=== PATIENT | male | born 1985 | race Caucasian/White ===

== ENCOUNTER → 2019-08-18 10:36 | Outpatient (BNVA) | payer BC, SELFPAY | PROVIDERS: Family Provider Family Medicine; Referring Provider Family Medicine; Visit Provider Family Medicine | DX: N39.0 Urinary tract infection, site not specified (principal); R31.0 Gross hematuria | CPT/HCPCS: 80053; 81000 ==

== ENCOUNTER → 2020-08-20 08:45 | Outpatient (BNVA) | payer BC, SELFPAY | PROVIDERS: Family Provider Family Medicine; Visit Provider Podiatrist Foot & Ankle Surgery | DX: B35.3 Tinea pedis (principal) | CPT/HCPCS: 87210 ==

== ENCOUNTER → 2021-05-22 14:38 | Outpatient (BNVA) | payer BC, SELFPAY | PROVIDERS: Family Provider Family Medicine; Visit Provider Nurse Practitioner | DX: R05.9 Cough, unspecified (principal) | CPT/HCPCS: 87880 ==

== ENCOUNTER 2021-06-06 08:34 | Outpatient (CLI) | payer BC, SELFPAY ==
[2021-06-06 08:32] VITALS: BP 133/82; PULSE 90; RESP 16; TEMP 36.6; O2SAT 97; BMI 37.2
[2021-06-06 09:17] VITALS: BP 124/82; PULSE 100; RESP 16; TEMP 36.9; O2SAT 94
[2021-06-06 10:02] VITALS: BP 123/75; PULSE 87; RESP 16; TEMP 36.8; O2SAT 93
== END 2021-06-06 08:35 | disposition home or self-care (01) ==
LOC: OPS 08:36
PROVIDERS: Family Provider Family Medicine; Visit Provider Nurse Practitioner
DX: U07.1 COVID-19 (principal)
CPT/HCPCS: 96365

== ENCOUNTER → 2022-05-22 08:35 | Outpatient (BNVA) | payer BC, SELFPAY | PROVIDERS: Family Provider Family Medicine; PCP Family Medicine; Visit Provider Family Medicine | DX: R03.0 Elevated blood-pressure reading, without diagnosis of hypertension (principal); Z68.39 Body mass index [BMI] 39.0-39.9, adult | CPT/HCPCS: 80053; 80061; 85025 ==

== ENCOUNTER 2025-05-03 16:52 | Emergency (ER) | payer OTHER, SELFPAY ==
[2025-05-03 17:09] VITALS: BP 160/108; PULSE 69; RESP 16; TEMP 36.7; O2SAT 99; BMI 41.7
[2025-05-03 17:58] VITALS: BP 171/114; O2SAT 95
--- NOTE | 2025-05-03 18:05 | ED_ITS ---
HPI - General Adult General: Chief complaint: Headache Stated complaint: headache (7days) Time Seen by Provider: 05/03/25 17:17 History of Present Illness: Patient is a 39-year-old male presenting with a chief complaint of 1 week of headache in his left muslim, sharp, throbbing, currently 8 out of 10. Headache developed gradually, no inciting event. He states it is worse towards the evening. Patient states that headache is significantly improved with ibuprofen but has been coming back throughout the week. Patient denies fever, upper respiratory symptoms, confusion, vision changes, difficulty with speech, swallowing, focal numbness, focal weakness, difficulty with coordination or ambulation. Patient denies shortness of breath, cough or chest pain. He denies any abdominal pain, nausea or vomiting. He states that he has been sensitive to sound. Patient does not take any medications aside from ibuprofen 800 mg couple times a day for headache. Patient is concerned because it has persisted for 1 week. Related Data Allergies Allergy/AdvReac Type Severity Reaction Status Date / Time No Known Allergies Allergy Verified 05/03/25 17:14 [facility] ED [facility]: Medical History (Updated 05/03/25 @ 19:08 by Dorcas Braun MD) Bronchitis due to 2019 novel coronavirus Family History Mother Diabetes Father Migraines Other Hyperlipidemia Hypertension Denies family history of CAD (coronary artery disease) Clotting disorder Dementia Psychiatric illness Chronic kidney disease (CKD) Anesthesia complication Bleeding disorder Lung disease Cancer Stroke Social History Smoking and tobacco/nicotine status: unknown if used tobacco/nicotine Alcohol intake: former Former alcohol use details: quit 6yrs ago, only social at times Substance/Drug Use: never Lives independently: Yes Marital status: Number of children: 2 Current occupational status: unemployed Current gender identity: Male Physical Exam Narrative: EXAM NARRATIVE: Vital signs were reviewed. Patient is alert and oriented. Patient is breathing comfortably, no increased WOB or accessory muscle use. SpO2 is above 95% on RA. No hypotension or tachycardia. Patient is moving all extremities, no deformity or gross injury. Neuro: Awake, alert, strength equal bilaterally. No sensory deficit. Able to perform FNF, heel to verdin. Ambulatory. Negative Romberg test. CRANIAL NERVES: II: Pupils equal and reactive, III, IV, : EOM intact, no gaze preference or deviation, no nystagmus. V: normal sensation in V1, V2, and V3 segments bilaterally VII: no asymmetry, no nasolabial fold flattening VIII: normal hearing to speech IX, X: normal palatal elevation, no uvular deviation XI: 5/5 head turn and 5/5 shoulder shrug bilaterally XII: midline tongue protrusion Course Vital Signs: Vital signs: Vital Signs Temperature 98.0 F 05/03/25 17:09 Pulse Rate 69 05/03/25 17:09 Respiratory Rate 16 05/03/25 17:09 Blood Pressure 131/79 05/03/25 18:26 Pulse Oximetry 95 05/03/25 17:58 Oxygen Delivery Me thod Room Air 05/03/25 17:58 MDM - General Adult Medical Decision Making 39-year-old male presenting with 1 week of sharp, throbbing headache in the left muslim. Headache is gradual in onset, not associated with fever, upper respiratory symptoms or new neurologic deficits. Differential diagnose includes, is limited to, migraine, status migrainosus, tension headache, cluster headache, meningitis, pseudotumor cerebri, other. On exam he centrically stable, nontoxic-appearing. He has a nonfocal neurologic exam. Headache is not worse with bending over or waking, states it gets worse throughout the day. Headache was not sudden onset, is significantly relieved with ibuprofen, have a low suspicion for SAH, ICH. Patient has been afebrile and there are no meningeal signs, have low suspicion for meningitis. He was treated with migraine cocktail and reassessed. On reassessment, headache has completely resolved. At this time, patient is stable for outpatient management. Patient was counseled on supportive care at home, given return precautions and discharged in stable condition with recommendation for outpatient follow-up with primary care nurse or doctor. No radiology studies performed this visit Discharge Plan Discharge Patient Disposition: Home Clinical Impression: Headache Qualifiers: Headache type: unspecified Headache chronicity pattern: acute headache Intr actability: not intractable Qualified Code(s): R51.9 - Headache, unspecified Condition: Stable Discharge Orders: Discharge ED (Routine); Ordered 05/03/25 Ordered By: Drocas Braun Referrals: Romero Vang MD [Primary Care Provider, Family Practice] Patient Instructions: Opioid Safety, Pain Management, Patient Portal & Emmanuel Instructions, Acute Headache (DC) Activity Restrictions/Additional Instructions: Please continue to monitor your condition closely at home. Take Ibuprofen 400mg and Tylenol 500-1000mg every six hours for pain and inflammation. If your condition worsens or additional concerns arise, please return promptly to the emergency department for reassessment. Follow up with your primary care doctor in one week. Print Language: Turkmen Coding Level of Care Code ED Beef Boner for Rigo Anthony
[2025-05-03 18:26] VITALS: BP 131/79
[2025-05-03 19:13] VITALS: BP 121/85; PULSE 71; O2SAT 94
[2025-05-03 19:21] VITALS: BP 134/106; PULSE 80; O2SAT 94
== END 2025-05-03 19:35 | disposition home or self-care (01) ==
PROVIDERS: Emergency Provider Emergency Medicine; PCP Family Medicine
DX: R51.9 Headache, unspecified (principal)
CPT/HCPCS: 96374; 96375; 99284; J0780; J1100; J1885; J9999